=== PATIENT | female | born 1940 ===

== ENCOUNTER 2018-01-23 11:27 | Emergency (ER) | payer MEDICARE ==
[2018-01-23 11:27] VITALS: BMI 24.5
[2018-01-23] MEDS ORDERED: Lidocaine 5% Patch TD STA (13:37)
[2018-01-23] MEDS ORDERED: Lidocaine 5% Patch TD ONE (15:38)
--- NOTE | 2018-01-23 16:18 | ED PDOC ---
HPI: Back Time Seen by Provider: 01/23/18 13:19 Chief Complaint (Nursing): Back Pain Chief Complaint (Provider): Back pain History Per: Patient History/Exam Limitations: no limitations Onset/Duration Of Symptoms: Days (2-3 days) Current Symptoms Are (Timing): Still Present Quality Of Discomfort: "Pain" Additional Complaint(s): 77 year old female presents to the ED complaining of atraumatic right lower back pain onset 3-4 days ago. Reports the pain radiates to her lower leg. States 2 months ago, she visited her pain management doctor whose name she cannot recall, told her she has a disc problem and prescribed her with Percocet. Patient has an appointment with her pain management on February 14 and has not felt any relief with the medication. Denies numbness, tingling, fever, abdominal pain, nausea, vomiting, hematuria, dysuria, or trauma. PMD: No Family Provider Past Medical History Reviewed: Historical Data, Nursing Documentation, Vital Signs Vital Signs: Last Vital Signs Temp 98 F 01/23/18 11:36 Pulse 71 01/23/18 11:36 Resp BP 167/65 H 01/23/18 11:36 Pulse Ox 96 01/23/18 11:36 - Medical History PMH: Arthritis, Asthma, Diabetes, Gastritis, HTN, Hypercholesterolemia Denies: Depression, HIV, Chronic Kidney Disease - Surgical History Surgical History: Cholecystectomy, Endoscopy Denies: Pacemaker - Family History Family History: States: Unknown Family Hx - Immunization History Hx Tetanus Toxoid Vaccination: No (STATES >10 YRS OLD) Hx Influenza Vaccination: Yes - Home Medications Home Medications: Ambulatory Orders Medication Instructions Recorded Zolpidem [Ambien] 10 mg PO HS 10/31/16 Clopidogrel [Plavix] 75 mg PO DAILY 11/01/16 Glipizide [Glipizide Xl] 10 mg PO BID 11/01/16 Insulin Glargine, Recombina 40 units HS 11/01/16 [Lantus] Metformin HCl [Glucophage] 1,000 mg BID 11/01/16 Metoprolol Succinate [Metoprolol 100 mg PO DAILY 11/01/16 Succinate Xl] Oxybutynin [Ditropan Tab] 5 mg HS 11/01/16 Rosuvastatin Calcium [Crestor] 10 mg HS 11/01/16 SITagliptin [Januvia] 100 mg DAILY 11/01/16 hydroCHLOROthiazide [Hydrodiuril] 25 mg DAILY 11/01/16 Lidocaine 5% [Lidoderm] 1 ea TD DAILY PRN #10 patch 01/23/18 Metaxalone [Skelaxin] 800 mg PO Q8 PRN #10 tablet 01/23/18 Nitrofurantoin Macrocrystals 100 mg PO BID #14 cap 01/23/18 [Macrobid] - Allergies Allergies/Adverse Reactions: Allergies Allergy/AdvReac Type Severity Reaction Status Date / Time aspirin AdvReac abdominal Verified 10/31/16 16:41 discomfort Review of Systems ROS Statement: Except As Marked, All Systems Reviewed And Found Negative Constitutional: Negative for: Fever, Other (trauma) Gastrointestinal: Negative for: Nausea, Vomiting, Abdominal Pain Genitourinary Female: Negative for: Dysuria, Incontinence, Hematuria Musculoskeletal: Positive for: Back Pain (right lower), Leg Pain. Negative for : Other (tingling) Neurological: Negative for: Numbness Physical Exam - Reviewed Nursing Documentation Reviewed: Yes Vital Signs Reviewed: Yes - Physical Exam Appears: Positive for: In Acute Distress (minimal) Head Exam: Positive for: ATRAUMATIC, NORMAL INSPECTION, NORMOCEPHALIC Skin: Positive for: Normal Color, Warm, Dry Cardiovascular/Chest: Positive for: Regular Rate, Rhythm. Negative for: Murmur Respiratory: Positive for: Normal Breath Sounds. Negative for: Decreased Breath Sounds, Accessory Muscle Use, Respiratory Distress Gastrointestinal/Abdominal: Positive for: Soft. Negative for: Tenderness Back: Positive for: Normal Inspection, Other (straight leg negative in right leg about 30 degrees, pinpoint right paralumbar and right buttock tenderness). Negative for: L CVA Tenderness, R CVA Tenderness Neurologic/Psych: Positive for: Alert, Oriented (x3). Negative for: Motor/ Sensory Deficits - ECG O2 Sat by Pulse Oximetry: 96 (RA) Pulse Ox Interpretation: Normal Medical Decision Making Medical Decision Making: Time: 1337 Initial Plan: --ED Urine Dipstick --Lidocacine 5% 1 ea --Ultram 50mg --Urine C&S --Reevaluation Clinical Impression: UTI Upon provider evaluation patient is medically stable, and requires no further treatment in the ED at this time. Patient will be discharged with Lidoderm for pain, Skelaxin 800mg for muscle spasm and Macrobid 100mg. Counseling was provided and all questions were answered regarding diagnosis. There is agreement to discharge plan. Return if symptoms persist or worsen. Scribe Attestation: Documented by Skip Sparrow, acting as a scribe for Abel Rose PA-C Provider Scribe Attestation: All medical record entries made by the Scribe were at my direction and personally dictated by me. I have reviewed the chart and agree that the record accurately reflects my personal performance of the history, physical exam, medical decision making, and the department course for this patient. I have also personally directed, reviewed, and agree with the discharge instructions and disposition. Disposition - Clinical Impression Clinical Impression: Low back pain, UTI (urinary tract infection) - Patient ED Disposition Is Patient to be Admitted: No - Disposition Referrals: [facility] [Outside] Disposition: Routine/Home Disposition Time: 16:30 Condition: STABLE Additional Instructions: Follow up with your pain management doctor on 02/14/2018 as previously scheduled Return to ED immediately if symptoms worsen Prescriptions: Lidocaine 5% [Lidoderm] 1 ea TD DAILY PRN #10 patch PRN Reason: pain Metaxalone [Skelaxin] 800 mg PO Q8 PRN #10 tablet PRN Reason: Muscle Spasm Nitrofurantoin Macrocrystals [Macrobid] 100 mg PO BID #14 cap Instructions: Low Back Pain (DC), Urinary Tract Infection, Adult (DC) Forms: [email or web address] (Bulgarian) Print Language: ARABIC
[2018-01-23 16:35] VITALS: BP 148/78; PULSE 70; RESP 18; TEMP 98.2
[2018-01-24 00:11] VITALS: O2SAT 96
== END 2018-01-23 16:35 | disposition home or self-care (01) ==
LOC: H.ER 11:27
DX: N39.0 Urinary tract infection, site not specified (principal); E11.9 Type 2 diabetes mellitus without complications; E78.00 Pure hypercholesterolemia, unspecified; I10 Essential (primary) hypertension; J45.909 Unspecified asthma, uncomplicated; Z79.4 Long term (current) use of insulin; M54.5 Low back pain

== ENCOUNTER 2018-12-16 07:27 | Observation (INO) | payer MEDICARE ==
[2018-12-16 07:33] VITALS: BMI 25.4
[2018-12-16] MEDS ORDERED: Sodium Chloride 0.9% 1,000 ML IV STA (07:53)
--- NOTE | 2018-12-16 08:01 | ED PDOC ---
HPI: Abdomen Time Seen by Provider: 12/16/18 07:31 Chief Complaint (Nursing): GI Problem Chief Complaint (Provider): GI Problem History Per: Patient History/Exam Limitations: no limitations Onset/Duration Of Symptoms: Days (x1) Location Of Pain/Discomfort: RUQ, Epigastric Associated Symptoms: Nausea, Vomiting. denies: Diarrhea Additional Complaint(s): Patient is a 78 year old female with a past medical history of diabetes, HTN and pancreatitis, who presents to the emergency department complaining of abdominal pain associated with nausea, vomiting since yesterday. She denies having any diarrhea, fever, or any blood in vomit or stool. PMD: Gretel Carbone Past Medical History Reviewed: Historical Data, Nursing Documentation, Vital Signs Vital Signs: Last Vital Signs Temp 98.5 F 12/16/18 07:34 Pulse 107 H 12/16/18 07:34 Resp 18 12/16/18 07:34 BP 168/76 H 12/16/18 07:34 Pulse Ox 99 12/16/18 07:34 - Medical History PMH: Arthritis, Asthma, Diabetes, Gastritis, HTN, Hypercholesterolemia, Pancreatitis Denies: Depression, HIV, Chronic Kidney Disease - Surgical History Surgical History: Cholecystectomy, Endoscopy Denies: Pacemaker - Family History Family History: States: Unknown Family Hx - Immunization History Hx Tetanus Toxoid Vaccination: No (STATES >10 YRS OLD) Hx Influenza Vaccination: Yes - Home Medications Home Medications: Ambulatory Orders Medication Instructions Recorded Glipizide [Glipizide Xl] 10 mg PO BID 11/01/16 Metformin HCl [Glucophage] 1,000 mg BID 11/01/16 Metoprolol Succinate [Metoprolol 100 mg PO DAILY 11/01/16 Succinate Xl] SITagliptin [Januvia] 100 mg DAILY 11/01/16 Levocetirizine Dihydrochloride 5 mg PO DAILY 12/16/18 [Xyzal] Ranitidine HCl [Zantac 300] 300 mg PO DAILY 12/16/18 - Allergies Allergies/Adverse Reactions: Allergies Allergy/AdvReac Type Severity Reaction Status Date / Time aspirin AdvReac abdominal Verified 10/31/16 16:41 discomfort Review of Systems Constitutional: Negative for: Fever Gastrointestinal: Positive for: Nausea, Vomiting, Abdominal Pain. Negative for: Diarrhea, Melena, Hematochezia, Hematemesis Physical Exam - Reviewed Nursing Documentation Reviewed: Yes Vital Signs Reviewed: Yes - Physical Exam Appears: Positive for: Non-toxic, No Acute Distress Head Exam: Positive for: ATRAUMATIC, NORMOCEPHALIC Skin: Positive for: Normal Color, Warm, Dry ENT: Positive for: Normal ENT Inspection Cardiovascular/Chest: Positive for: Regular Rate, Rhythm. Negative for: Murmur Respiratory: Positive for: Normal Breath Sounds. Negative for: Respiratory Distress Gastrointestinal/Abdominal: Positive for: Tenderness (mild epigastric tenderness and RUQ tenderness). Negative for: Guarding, Rebound Neurological/Psych: Positive for: Alert, Oriented. Negative for: Motor/Sensory Deficits - Laboratory Results Result Diagrams: 12/16/18 08:23 12/16/18 08:23 - ECG O2 Sat by Pulse Oximetry: 99 (RA) Pulse Ox Interpretation: Normal Medical Decision Making Medical Decision Making: Time: 0753 Impression: Plan: --CT Abd and Pelvis with IV contrast --CMP --Lipase --ED urine dipstick --CBC with differential --Pepcid 20 mg IVP --Sodium chloride 1,000 ml --Zofran 4 mg IVP Scribe Attestation: Documented by Sd Gong, acting as a scribe Lincoln Mancia MD. Provider Scribe Attestation: All medical record entries made by the Scribe were at my direction and personally dictated by me. I have reviewed the chart and agree that the record accurately reflects my personal performance of the history, physical exam, medical decision making, and the department course for this patient. I have also personally directed, reviewed, and agree with the discharge instructions and disposition. Disposition - Clinical Impression Clinical Impression: Pancreatitis, Diabetes mellitus - Patient ED Disposition Is Patient to be Admitted: Yes - Disposition Disposition Time: 10:34 Condition: FAIR Forms: [employer] (Kiswahili) - Pt Status Changed To: Hospital Disposition Of: Observation - POA Present On Arrival: None
[2018-12-16 08:28] LABS: BASO # 0.1 K/uL (0.0-0.2); BASO % 0.8 % (0.0-2.0); EOS # 0.3 K/uL (0.0-0.7); EOS % 2.4 % (0.0-4.0); HEMOGLOBIN 12.3 g/dL (12.0-16.0); LYMPH # 1.3 K/uL (1.0-4.3); LYMPH % 10.2 % (20.0-40.0); MEAN CELL VOLUME 88.1 fl (81.0-99.0); MEAN CORPUSCULAR HGB CONC 32.9 g/dL (33.0-37.0); MEAN PLATELET VOLUME 11.2 fl (7.2-11.7); MONO # 0.8 K/uL (0.0-0.8); MONO % 6.2 % (0.0-10.0); NEUT # 10.2 K/uL (1.8-7.0); NEUT % 80.4 % (50.0-75.0); RBC 4.26 Mil/uL (3.80-5.20); RED CELL DISTRIBUTION WIDTH 15.3 % (11.5-14.5); WHITE BLOOD COUNT 12.7 K/uL (4.8-10.8)
[2018-12-16 08:46] LABS: ALB/GLOB RATIO 1.5 (1.0-2.1); ALBUMIN 4.6 g/dL (3.5-5.0); ALT/SGPT 24 U/L (9-52); AST/SGOT 24 U/L (14-36); BLOOD UREA NITROGEN 31 mg/dl (7-17); CALCIUM 10.6 mg/dL (8.4-10.2); GFR NON-AFRICAN AMERICAN > 60; LIPASE 984 U/L (23-300)
[2018-12-16] MEDS ORDERED: Sodium Chloride 0.9% 50 ML IV ONE (10:00)
[2018-12-16] MEDS ORDERED: Iohexol 300 100 ML IJ ONE (10:00)
[2018-12-16] MEDS: Lactated Ringer's 1,000 ML IV SCH ×2 (10:06→18:02)
--- NOTE | 2018-12-16 10:40 | CT ---
Date of service: 2018-12-16 10:10:08 PROCEDURE: CT Abdomen and Pelvis with contrast HISTORY: Abd pain COMPARISON: 10/31/2016 CT scan TECHNIQUE: Contrast dose: 95 mL Radiation dose: Total exam DLP = 570 mGy-cm. This CT exam was performed using one or more of the following dose reduction techniques: Automated exposure control, adjustment of the mA and/or kV according to patient size, and/or use of iterative reconstruction technique. FINDINGS: LOWER THORAX: Mild emphysematous and interstitial changes seen at the lung bases without focal infiltrate. There is a minor area of scarring seen in the lingula on axial image 4. Heart is mildly enlarged. No pericardial effusion is seen. LIVER: Liver is once again diffusely fatty infiltrated without evidence of focal mass or intrahepatic ductal dilatation. GALLBLADDER AND BILE DUCTS: Gallbladder has been previously removed. The common bile duct is normal in size for a post cholecystectomy patient of this age. PANCREAS: Pancreas is predominantly fatty replaced in the head region. No pancreatic enlargement or peripancreatic inflammatory changes are noted. No pancreatic mass is seen. SPLEEN: Unremarkable. ADRENALS: Unremarkable. No mass. KIDNEYS AND URETERS: Kidneys show no evidence of hydronephrosis, calculus, or mass. No perinephric changes are seen. No ureteral dilatation is noted. VASCULATURE: No aneurysm seen. Moderate aortic atherosclerotic changes noted without aneurysmal dilatation. The atherosclerotic changes involve the aortic branches and iliac arteries. BOWEL: There is evidence of small hiatal hernia. Visualized stomach is decompressed limiting evaluation for wall thickening although no focal wall thickening is seen. There is a mildly dilated fluid-filled duodenum noted as well as a large duodenal diverticulum extending medially towards the pancreatic head region. This appears to be just inferior to the ampullary region although some fluid and debris is noted in the duodenal diverticulum. A mild amount of SMA syndrome is not fully excluded but considered less likely. There is additionally numerous areas of fluid-filled small bowel noted with some mild fold thickening appreciated but no significant mesenteric thickening. Findings may suggest enteritis in the correct clinical setting but should be further correlated with patient's laboratory values and symptoms. Terminal ileum is unremarkable. There is moderate residual fecal material throughout the colon without pericolonic inflammatory change or bowel wall thickening. Rectosigmoid region is unremarkable. APPENDIX: No right lower quadrant inflammatory process to suggest appendicitis is seen. Appendix is normal in size. PERITONEUM: No free intraperitoneal air or ascites is seen. No retroperitoneal adenopathy is noted. LYMPH NODES: Unremarkable. No enlarged lymph nodes. BLADDER: Bladder is decompressed limiting evaluation REPRODUCTIVE: No pelvic masses are seen. BONES: No fracture. OTHER FINDINGS: None. IMPRESSION: No evidence of bowel obstruction. Diffusely fluid-filled small bowel loops with some possible mild fold thickening. Mild amount of enteritis is not excluded. Enlarged duodenal diverticulum with debris but no significant inflammatory changes. Status post cholecystectomy. Fatty infiltration of the liver. No evidence of bowel obstruction or colitis.
[2018-12-16 12:18] LABS: SQUAMOUS EPITHIAL 1 /hpf (0-5); URINE BACTERIA RARE (<OCC); URINE BILIRUBIN NEGATIVE (NEGATIVE); URINE BLOOD NEGATIVE (NEGATIVE); URINE CLARITY CLOUDY (Clear); URINE COLOR YELLOW (YELLOW); URINE GLUCOSE (UA) 150 mg/dL (NEGATIVE); URINE LEUKOCYTE ESTERASE SMALL Leu/uL (Negative); URINE PROTEIN 30 mg/dL (NEGATIVE); URINE UROBILINOGEN 0.2-1.0 mg/dL (0.2-1.0)
--- NOTE | 2018-12-16 12:25 | CP.PCM.HP ---
<Nidia Collado - Last Filed: 12/16/18 12:58> History of Present Illness - History of Present Illness History of Present Illness: Voyce: [id number] Pt is a 78 yo F with a pmhx of pancreatitis, DM, HTN presented to the ED due to intractable NBNB vomiting 10x last night and abdominal pain. Pt has been taking januvia for 3-4 years. Denies fever, chills, chest pain, SOB, Diarrhea, constipation or dysuria. PMD: Gretel Carbone Pmhx: Pancreatitis, DM, HTN, Arthritis, Asthma, Gastritis, HLD Allergies: ASA-bodyaches Meds: Januvia 100mg QD, Glipizide 10mg BID, Xyzal 5mg QD, Metformin 1000mg BID, Zantac, Metoprolol 100mg QD Surg: Cholecystectomy 1998, Uterine Laser surg, Hysterectomy Hosp: hospitalized 10/2016 at [facility] for pancreatitis Social Hx: Denies tobacco, EtOH, or drug use FHx: Bother colon ca @60, sister colon ca @80 Code status: Full code ED course: CBC wbc-12.7, CMP- K 5.4, Lipase 984, urine dip, pepcid 20mg IVP, NaCl 1 L, Zofran 4mg IVP, Ab/pelv CT with IV contrast- no obstruction, enteritis not excluded, duodenal diverticulum with debri no sig inflamm changes, pancreas predom fatty replaced in head region, no enlargement, mass or inflammatory changes seen. Present on Admission - Present on Admission Any Indicators Present on Admission: No History of DVT/PE: No History of Uncontrolled Diabetes: No Urinary Catheter: No Decubitus Ulcer Present: No Review of Systems - Gastrointestinal Gastrointestinal: Abdominal Pain, Nausea, Vomiting Past Patient History - Past Medical History & Family History Past Medical History?: Yes - Past Social History Smoking Status: Never Smoked Alcohol: None Drugs: Denies - CARDIAC Hx Hypercholesterolemia: Yes Hx Hypertension: Yes Hx Pacemaker: No - PULMONARY Hx Asthma: Yes - NEUROLOGICAL Hx Neurological Disorder: No Hx Paralysis: No - HEENT Hx HEENT Problems: Yes Hx Cataracts: Yes - RENAL Hx Chronic Kidney Disease: No - ENDOCRINE/METABOLIC Hx Endocrine Disorders: Yes Hx Diabetes Mellitus Type 1: Yes Hx Diabetes Mellitus Type 2: Yes Other/Comment: DIABETIC NEUROPATHY - HEMATOLOGICAL/ONCOLOGICAL Hx Human Immunodeficiency Virus (HIV): No - INTEGUMENTARY Hx Dermatological Problems: No - MUSCULOSKELETAL/RHEUMATOLOGICAL Hx Arthritis: Yes - GASTROINTESTINAL Hx Gastritis: Yes Hx Pancreatitis: Yes - GENITOURINARY/GYNECOLOGICAL Hx Genitourinary Disorders: No - PSYCHIATRIC Hx Depression: No - SURGICAL HISTORY Hx Cholecystectomy: Yes - ANESTHESIA Hx Anesthesia: Yes Hx Anesthesia Reactions: No Hx Malignant Hyperthermia: No Meds Allergies/Adverse Reactions: Allergies Allergy/AdvReac Type Severity Reaction Status Date / Time aspirin AdvReac abdominal Verified 10/31/16 16:41 discomfort Physical Exam - Constitutional Appears: Non-toxic, No Acute Distress - Head Exam Head Exam: ATRAUMATIC, NORMAL INSPECTION, NORMOCEPHALIC - Eye Exam Eye Exam: EOMI - ENT Exam ENT Exam: Mucous Membranes Moist - Respiratory Exam Respiratory Exam: Clear to Auscultation Bilateral. absent: Rales, Rhonchi, Wheezes - Cardiovascular Exam Cardiovascular Exam: REGULAR RHYTHM, +S1, +S2 - GI/Abdominal Exam GI & Abdominal Exam: Normal Bowel Sounds, Soft, Tenderness (epigastric/RUQ). absent: Guarding, Rebound, Rigid - Extremities Exam Extremities exam: Positive for: normal inspection. Negative for: pedal edema - Neurological Exam Neurological exam: Alert, Oriented x3 Results - Vital Signs Recent Vital Signs: Last Vital Signs Temp 98.1 F 12/16/18 11:23 Pulse 103 H 12/16/18 11:23 Resp 18 12/16/18 11:23 BP 119/76 12/16/18 11:23 Pulse Ox 96 12/16/18 11:23 - Labs Result Diagrams: 12/16/18 08:23 12/16/18 08:23 Labs: Laboratory Results - last 24 hr 12/16/18 12/16/18 12/16/18 08:23 08:23 11:55 WBC 12.7 H D RBC 4.26 Hgb 12.3 Hct 37.5 MCV 88.1 MCH 29.0 MCHC 32.9 L RDW 15.3 H Plt Count 202 MPV 11.2 Neut % (Auto) 80.4 H Lymph % (Auto) 10.2 L [place] % (Auto) 6.2 Eos % (Auto) 2.4 Baso % (Auto) 0.8 Neut # (Auto) 10.2 H Lymph # (Auto) 1.3 [place] # (Auto) 0.8 Eos # (Auto) 0.3 Baso # (Auto) 0.1 Sodium 138 Potassium 5.4 H Chloride 100 Carbon Dioxide 24 Anion Gap 19 BUN 31 H Creatinine 0.7 Est GFR ( Amer) > 60 Est GFR (Non-Af Amer) > 60 Random Glucose 306 H Calcium 10.6 H Total Bilirubin 0.5 AST 24 ALT 24 Alkaline Phosphatase 73 Total Protein 7.7 Albumin 4.6 Globulin 3.1 Albumin/Globulin Ratio 1.5 Lipase 984 H Urine Color Yellow Urine Clarity Cloudy Urine pH 5.0 Ur Specific [place] 1.020 Urine Protein 30 Urine Glucose (UA) 150 Urine Ketones Negative Urine Blood Negative Urine Nitrate Negative Urine Bilirubin Negative Urine Urobilinogen 0.2-1.0 Ur Leukocyte Esterase Small Urine RBC (Auto) 3 Urine Microscopic WBC 25 H Ur Squamous Epith Cells 1 Urine Bacteria Rare Assessment & Plan - Assessment and Plan (Free Text) Assessment: Pt is a 78 yo F with a pmhx of pancreatitis, DM, HTN presented to the ED due to intractable NBNB vomiting and abdominal pain admitted due to Pancreatitis and DM Pancreatitis acute Lipase elevated 984 LR's @ 150ml/hr, morphine, zofran CBC wbc-12.7, CMP- K 5.4 Ab/pelv CT with IV contrast- no obstruction, enteritis not excluded, duodenal diverticulum with debri no sig inflamm changes, pancreas predom fatty replaced in head region, no enlargement, mass or inflammatory changes seen. F/u BMP, CBC, hgA1c, Lipid panel in AM DM chronic, uncontrolled POC 306 Insulin SS Accuchecks, hypoglycemic protocol F/u hgA1c and lipid panel in AM HTN chronic c/w metoprolol 100mg QD Gastritis chronic pepcid 20mg IVP Diet NPO diet DVT PPX Lovenox 40mg SC daily <Steffen Miramontes D - Last Filed: 12/16/18 13:46> Results - Vital Signs Recent Vital Signs: Last Vital Signs Temp 98.1 F 12/16/18 11:23 Pulse 103 H 12/16/18 11:23 Resp 18 12/16/18 11:23 BP 119/76 12/16/18 11:23 Pulse Ox 96 12/16/18 11:23 - Labs Result Diagrams: 12/16/18 08:23 12/16/18 08:23 Labs: Laboratory Results - last 24 hr 12/16/18 12/16/18 12/16/18 08:23 08:23 11:55 WBC 12.7 H D RBC 4.26 Hgb 12.3 Hct 37.5 MCV 88.1 MCH 29.0 MCHC 32.9 L RDW 15.3 H Plt Count 202 MPV 11.2 Neut % (Auto) 80.4 H Lymph % (Auto) 10.2 L [place] % (Auto) 6.2 Eos % (Auto) 2.4 Baso % (Auto) 0.8 Neut # (Auto) 10.2 H Lymph # (Auto) 1.3 [place] # (Auto) 0.8 Eos # (Auto) 0.3 Baso # (Auto) 0.1 Sodium 138 Potassium 5.4 H Chloride 100 Carbon Dioxide 24 Anion Gap 19 BUN 31 H Creatinine 0.7 Est GFR ( Amer) > 60 Est GFR (Non-Af Amer) > 60 POC Glucose (mg/dL) Random Glucose 306 H Calcium 10.6 H Total Bilirubin 0.5 AST 24 ALT 24 Alkaline Phosphatase 73 Total Protein 7.7 Albumin 4.6 Globulin 3.1 Albumin/Globulin Ratio 1.5 Lipase 984 H Urine Color Yellow Urine Clarity Cloudy Urine pH 5.0 Ur Specific [place] 1.020 Urine Protein 30 Urine Glucose (UA) 150 Urine Ketones Negative Urine Blood Negative Urine Nitrate Negative Urine Bilirubin Negative Urine Urobilinogen 0.2-1.0 Ur Leukocyte Esterase Small Urine RBC (Auto) 3 Urine Microscopic WBC 25 H Ur Squamous Epith Cells 1 Urine Bacteria Rare 12/16/18 12:57 WBC RBC Hgb Hct MCV MCH MCHC RDW Plt Count MPV Neut % (Auto) Lymph % (Auto) [place] % (Auto) Eos % (Auto) Baso % (Auto) Neut # (Auto) Lymph # (Auto) [place] # (Auto) Eos # (Auto) Baso # (Auto) Sodium Potassium Chloride Carbon Dioxide Anion Gap BUN Creatinine Est GFR ( Amer) Est GFR (Non-Af Amer) POC Glucose (mg/dL) 239 H Random Glucose Calcium Total Bilirubin AST ALT Alkaline Phosphatase Total Protein Albumin Globulin Albumin/Globulin Ratio Lipase Urine Color Urine Clarity Urine pH Ur Specific [place] Urine Protein Urine Glucose (UA) Urine Ketones Urine Blood Urine Nitrate Urine Bilirubin Urine Urobilinogen Ur Leukocyte Esterase Urine RBC (Auto) Urine Microscopic WBC Ur Squamous Epith Cells Urine Bacteria Attending/Attestation - Attestation I have personally seen and examined this patient.: Yes I have fully participated in the care of the patient.: Yes I have reviewed all pertinent clinical information: Yes Notes (Text): 12/16/18 13:44 Patient seen and examined with resident. Case discussed and agreed with assessment and plan of management
[2018-12-16] MEDS ORDERED: Glucagon Recombinant 1 mg Inj IM PRN (12:56)
[2018-12-16] MEDS ORDERED: Dextrose 50% SYRINGE Inj (50 ml) IV PRN (12:56)
[2018-12-16] MEDS: Metoprolol Succinate 100 mg XL Tab PO SCH (14:46)
[2018-12-16] MEDS ORDERED: Pneumococcal 23-Valent Vaccine IM ONE (16:00)
[2018-12-16] MEDS: Insulin Lispro (humaLOG) 100 Units/ml Inj SC SCH ×2 (18:02→22:03)
[2018-12-16] MEDS: Sodium Chloride 0.9% 1,000 ML IV SCH (20:18)
[2018-12-17] MEDS: Sodium Chloride 0.9% 1,000 ML IV SCH ×3 (02:55→09:40)
[2018-12-17 06:00] VITALS: RESP 19
[2018-12-17] MEDS: Insulin Lispro (humaLOG) 100 Units/ml Inj SC SCH ×2 (06:49→12:56)
[2018-12-17 07:14] LABS: BASO % 0.3 % (0.0-2.0); EOS # 0.2 K/uL (0.0-0.7); EOS % 2.2 % (0.0-4.0); HEMOGLOBIN 10.6 g/dL (12.0-16.0); LYMPH # 1.9 K/uL (1.0-4.3); LYMPH % 24.6 % (20.0-40.0); MEAN CORPUSCULAR HEMOGLOBIN 29.3 pg (27.0-31.0); MEAN CORPUSCULAR HGB CONC 33.3 g/dL (33.0-37.0); MEAN PLATELET VOLUME 10.7 fl (7.2-11.7); MONO # 0.6 K/uL (0.0-0.8); MONO % 7.6 % (0.0-10.0); NEUT # 5.1 K/uL (1.8-7.0); NEUT % 65.3 % (50.0-75.0); RBC 3.6 Mil/uL (3.80-5.20); RED CELL DISTRIBUTION WIDTH 15.1 % (11.5-14.5); WHITE BLOOD COUNT 7.7 K/uL (4.8-10.8)
[2018-12-17 07:23] LABS: BLOOD UREA NITROGEN 14 mg/dl (7-17); CALCIUM 8.9 mg/dL (8.4-10.2); GFR NON-AFRICAN AMERICAN > 60; HDL CHOLESTEROL 26 MG/DL (30-70)
[2018-12-17 07:30] LABS: LDL CHOLESTEROL 39 mg/dL (0-129)
[2018-12-17 07:34] VITALS: PULSE 81; TEMP 98.3; O2SAT 96
--- NOTE | 2018-12-17 08:18 | CP.PCM.PN ---
Objective - Vital Signs/Intake and Output Vital Signs (last 24 hours): Temp Pulse Resp BP Pulse Ox 98.3 F 81 19 165/75 H 96 12/17/18 07:34 12/17/18 07:34 12/17/18 07:34 12/17/18 07:34 12/17/18 07:34 - Medications Medications: Current Medications Dextrose (Dextrose 50% Inj) 0 ml IV STAT PRN; Protocol PRN Reason: Hypoglycemia Protocol Dextrose (Glutose 15) 0 gm PO ONCE PRN; Protocol PRN Reason: Hypoglycemia Protocol Enoxaparin Sodium (Lovenox) 40 mg SC DAILY [facility]; Protocol Glucagon (Glucagen Diagnostic Kit) 0 mg IM STAT PRN; Protocol PRN Reason: Hypoglycemia Protocol Sodium Chloride (Sodium Chloride 0.9%) 1,000 mls @ 150 mls/hr IV .[id number] [facility] Stop: 12/17/18 20:01 Last Admin: 12/17/18 03:38 Dose: 150 mls/hr Insulin Human Lispro (Humalog) 0 units SC ACHS [facility]; Protocol Last Admin: 12/17/18 06:49 Dose: 3 unit Metoprolol Succinate (Toprol Xl) 100 mg PO DAILY [facility] Last Admin: 12/16/18 14:46 Dose: 100 mg Morphine Sulfate (Morphine) 2 mg IVP Q4 PRN PRN Reason: Pain, moderate (4-7) Last Admin: 12/16/18 23:36 Dose: 2 mg Ondansetron HCl (Zofran Inj) 4 mg IVP Q6 PRN PRN Reason: Nausea/Vomiting - Labs Labs: 12/17/18 06:30 12/17/18 06:30
[2018-12-17] MEDS: Metoprolol Succinate 100 mg XL Tab PO SCH (08:38)
[2018-12-17 08:39] VITALS: BP 165/77
[2018-12-17] MEDS ORDERED: Enoxaparin 40 mg Syringe SC SCH (09:00)
--- NOTE | 2018-12-17 13:55 | CP.PCM.DIS ---
<Nidia Collado - Last Filed: 12/17/18 14:19> Provider - Provider Date of Admission: 12/16/18 10:33 Attending physician: Steffen Miramontes MD Primary care physician: Gretel Carbone Time Spent in preparation of Discharge (in minutes): 15 Diagnosis - Discharge Diagnosis (1) Pancreatitis Status: Acute Comment: resolved, tolerating oral intake. Due to hx of pancreatitis and acute episode discontinue Januvia. D/C home follow up with Dr. Gretel Carbone in 1 week (2) Diabetes mellitus Status: Acute Comment: Due to hx of pancreatitis and acute episode discontinue Januvia. D/C home follow up with Dr. Gretel Carbone in 1 week (3) Abdominal pain Status: Acute Comment: Resolved Hospital Course - Lab Results Lab Results: Most Recent Lab Values WBC 7.7 K/uL (4.8-10.8) 12/17/18 06:30 RBC 3.60 Mil/uL (3.80-5.20) L 12/17/18 06:30 Hgb 10.6 g/dL (12.0-16.0) L 12/17/18 06:30 Hct 31.7 % (34.0-47.0) L 12/17/18 06:30 MCV 88.0 fl (81.0-99.0) 12/17/18 06:30 MCH 29.3 pg (27.0-31.0) 12/17/18 06:30 MCHC 33.3 g/dL (33.0-37.0) 12/17/18 06:30 RDW 15.1 % (11.5-14.5) H 12/17/18 06:30 Plt Count 159 K/uL (130-400) 12/17/18 06:30 MPV 10.7 fl (7.2-11.7) 12/17/18 06:30 Neut % (Auto) 65.3 % (50.0-75.0) 12/17/18 06:30 Lymph % (Auto) 24.6 % (20.0-40.0) 12/17/18 06:30 P[place] % (Auto) 7.6 % (0.0-10.0) 12/17/18 06:30 Eos % (Auto) 2.2 % (0.0-4.0) 12/17/18 06:30 Baso % (Auto) 0.3 % (0.0-2.0) 12/17/18 06:30 Neut # (Auto) 5.1 K/uL (1.8-7.0) 12/17/18 06:30 Lymph # (Auto) 1.9 K/uL (1.0-4.3) 12/17/18 06:30 Pendleton # (Auto) 0.6 K/uL (0.0-0.8) 12/17/18 06:30 Eos # (Auto) 0.2 K/uL (0.0-0.7) 12/17/18 06:30 Baso # (Auto) 0.0 K/uL (0.0-0.2) 12/17/18 06:30 Sodium 136 mmol/l (132-148) 12/17/18 06:30 Potassium 4.5 MMOL/L (3.6-5.0) 12/17/18 06:30 Chloride 100 mmol/L (98-107) 12/17/18 06:30 Carbon Dioxide 27 mmol/L (22-30) 12/17/18 06:30 Anion Gap 14 (10-20) 12/17/18 06:30 BUN 14 mg/dl (7-17) 12/17/18 06:30 Creatinine 0.6 mg/dl (0.7-1.2) L 12/17/18 06:30 Est GFR ( Amer) > 60 12/17/18 06:30 Est GFR (Non-Af Amer) > 60 12/17/18 06:30 POC Glucose (mg/dL) 244 mg/dL (65-110) H 12/17/18 12:07 Random Glucose 260 mg/dL (65-105) H 12/17/18 06:30 Calcium 8.9 mg/dL (8.4-10.2) 12/17/18 06:30 Total Bilirubin 0.5 mg/dl (0.2-1.3) 12/16/18 08:23 AST 24 U/L (14-36) 12/16/18 08:23 ALT 24 U/L (9-52) 12/16/18 08:23 Alkaline Phosphatase 73 U/L (38-126) 12/16/18 08:23 Total Protein 7.7 G/DL (6.3-8.2) 12/16/18 08:23 Albumin 4.6 g/dL (3.5-5.0) 12/16/18 08:23 Globulin 3.1 gm/dL (2.2-3.9) 12/16/18 08:23 Albumin/Globulin Ratio 1.5 (1.0-2.1) 12/16/18 08:23 Triglycerides 257 mg/DL (0-149) H 12/17/18 06:30 Cholesterol 120 mg/dL (0-199) 12/17/18 06:30 LDL Cholesterol Direct 39 mg/dL (0-129) 12/17/18 06:30 HDL Cholesterol 26 MG/DL (30-70) L 12/17/18 06:30 Lipase 984 U/L (23-300) H 12/16/18 08:23 Urine Color Yellow (YELLOW) 12/16/18 11:55 Urine Clarity Cloudy (Clear) 12/16/18 11:55 Urine pH 5.0 (5.0-8.0) 12/16/18 11:55 Ur Specific Bethany 1.020 (1.003-1.030) 12/16/18 11:55 Urine Protein 30 mg/dL (NEGATIVE) 12/16/18 11:55 Urine Glucose (UA) 150 mg/dL (NEGATIVE) 12/16/18 11:55 Urine Ketones Negative mg/dL (NEGATIVE) 12/16/18 11:55 Urine Blood Negative (NEGATIVE) 12/16/18 11:55 Urine Nitrate Negative (NEGATIVE) 12/16/18 11:55 Urine Bilirubin Negative (NEGATIVE) 12/16/18 11:55 Urine Urobilinogen 0.2-1.0 mg/dL (0.2-1.0) 12/16/18 11:55 Ur Leukocyte Esterase Small Johnathan/uL (Negative) 12/16/18 11:55 Urine RBC (Auto) 3 /hpf (0-3) 12/16/18 11:55 Urine Microscopic WBC 25 /hpf (0-5) H 12/16/18 11:55 Ur Squamous Epith Cells 1 /hpf (0-5) 12/16/18 11:55 Urine Bacteria Rare (<OCC) 12/16/18 11:55 - Hospital Course Hospital Course: Pt is a 78 yo F with a pmhx of pancreatitis, DM, HTN presented to the ED on 12/16/18 due to intractable NBNB vomiting 10x and abdominal pain. Pt had been taking januvia for 3-4 years. CBC wbc-12.7, CMP- K 5.4, Lipase 984, urine dip, pepcid 20mg IVP, NaCl 1 L, Zofran 4mg IVP, Ab/pelv CT with IV contrast- no obstruction, enteritis not excluded, duodenal diverticulum with debri no sig inflamm changes, pancreas predom fatty replaced in head region, no enlargement, mass or inflammatory changes seen. Today patient is tolerating oral intake. VS stable. Denies abdominal pain, fever, chills, chest pain, N/V SOB, Diarrhea, constipation or dysuria. Discontinued Januvia on discharge. F/u with PMD in 1 week. Discharge Exam - Head Exam Head Exam: ATRAUMATIC, NORMAL INSPECTION, NORMOCEPHALIC - Eye Exam Eye Exam: EOMI - ENT Exam ENT Exam: Mucous Membranes Moist - Respiratory Exam Respiratory Exam: Clear to PA & Lateral, NORMAL BREATHING PATTERN - Cardiovascular Exam Cardiovascular Exam: RRR, +S1, +S2 - GI/Abdominal Exam GI & Abdominal Exam: Normal Bowel Sounds, Soft. absent: Tenderness - Extremities Exam Extremities exam: normal inspection - Neurological Exam Neurological exam: Alert, Oriented x3 Discharge Plan - Follow Up Plan Condition: FAIR Disposition: HOME/ ROUTINE Instructions: Pancreatitis Additional Instructions: hacer gus con jimenez doctor primario dentro de 1 semana Referrals: Gretel Carbone MD [Medical Doctor] - <Steffen Miramontes - Last Filed: 12/17/18 15:00> Provider - Provider Date of Admission: 12/16/18 10:33 Attending physician: Steffen Miramontes MD Hospital Course - Lab Results Lab Results: Most Recent Lab Values WBC 7.7 K/uL (4.8-10.8) 12/17/18 06:30 RBC 3.60 Mil/uL (3.80-5.20) L 12/17/18 06:30 Hgb 10.6 g/dL (12.0-16.0) L 12/17/18 06:30 Hct 31.7 % (34.0-47.0) L 12/17/18 06:30 MCV 88.0 fl (81.0-99.0) 12/17/18 06:30 MCH 29.3 pg (27.0-31.0) 12/17/18 06:30 MCHC 33.3 g/dL (33.0-37.0) 12/17/18 06:30 RDW 15.1 % (11.5-14.5) H 12/17/18 06:30 Plt Count 159 K/uL (130-400) 12/17/18 06:30 MPV 10.7 fl (7.2-11.7) 12/17/18 06:30 Neut % (Auto) 65.3 % (50.0-75.0) 12/17/18 06:30 Lymph % (Auto) 24.6 % (20.0-40.0) 12/17/18 06:30 [place] % (Auto) 7.6 % (0.0-10.0) 12/17/18 06:30 Eos % (Auto) 2.2 % (0.0-4.0) 12/17/18 06:30 Baso % (Auto) 0.3 % (0.0-2.0) 12/17/18 06:30 Neut # (Auto) 5.1 K/uL (1.8-7.0) 12/17/18 06:30 Lymph # (Auto) 1.9 K/uL (1.0-4.3) 12/17/18 06:30 [place] # (Auto) 0.6 K/uL (0.0-0.8) 12/17/18 06:30 Eos # (Auto) 0.2 K/uL (0.0-0.7) 12/17/18 06:30 Baso # (Auto) 0.0 K/uL (0.0-0.2) 12/17/18 06:30 Sodium 136 mmol/l (132-148) 12/17/18 06:30 Potassium 4.5 MMOL/L (3.6-5.0) 12/17/18 06:30 Chloride 100 mmol/L (98-107) 12/17/18 06:30 Carbon Dioxide 27 mmol/L (22-30) 12/17/18 06:30 Anion Gap 14 (10-20) 12/17/18 06:30 BUN 14 mg/dl (7-17) 12/17/18 06:30 Creatinine 0.6 mg/dl (0.7-1.2) L 12/17/18 06:30 Est GFR ( Amer) > 60 12/17/18 06:30 Est GFR (Non-Af Amer) > 60 12/17/18 06:30 POC Glucose (mg/dL) 244 mg/dL (65-110) H 12/17/18 12:07 Random Glucose 260 mg/dL (65-105) H 12/17/18 06:30 Calcium 8.9 mg/dL (8.4-10.2) 12/17/18 06:30 Total Bilirubin 0.5 mg/dl (0.2-1.3) 12/16/18 08:23 AST 24 U/L (14-36) 12/16/18 08:23 ALT 24 U/L (9-52) 12/16/18 08:23 Alkaline Phosphatase 73 U/L (38-126) 12/16/18 08:23 Total Protein 7.7 G/DL (6.3-8.2) 12/16/18 08:23 Albumin 4.6 g/dL (3.5-5.0) 12/16/18 08:23 Globulin 3.1 gm/dL (2.2-3.9) 12/16/18 08:23 Albumin/Globulin Ratio 1.5 (1.0-2.1) 12/16/18 08:23 Triglycerides 257 mg/DL (0-149) H 12/17/18 06:30 Cholesterol 120 mg/dL (0-199) 12/17/18 06:30 LDL Cholesterol Direct 39 mg/dL (0-129) 12/17/18 06:30 HDL Cholesterol 26 MG/DL (30-70) L 12/17/18 06:30 Lipase 984 U/L (23-300) H 12/16/18 08:23 Urine Color Yellow (YELLOW) 12/16/18 11:55 Urine Clarity Cloudy (Clear) 12/16/18 11:55 Urine pH 5.0 (5.0-8.0) 12/16/18 11:55 Ur Specific Beth[place] 1.020 (1.003-1.030) 12/16/18 11:55 Urine Protein 30 mg/dL (NEGATIVE) 12/16/18 11:55 Urine Glucose (UA) 150 mg/dL (NEGATIVE) 12/16/18 11:55 Urine Ketones Negative mg/dL (NEGATIVE) 12/16/18 11:55 Urine Blood Negative (NEGATIVE) 12/16/18 11:55 Urine Nitrate Negative (NEGATIVE) 12/16/18 11:55 Urine Bilirubin Negative (NEGATIVE) 12/16/18 11:55 Urine Urobilinogen 0.2-1.0 mg/dL (0.2-1.0) 12/16/18 11:55 Ur Leukocyte Esterase Small Johnathan/uL (Negative) 12/16/18 11:55 Urine RBC (Auto) 3 /hpf (0-3) 12/16/18 11:55 Urine Microscopic WBC 25 /hpf (0-5) H 12/16/18 11:55 Ur Squamous Epith Cells 1 /hpf (0-5) 12/16/18 11:55 Urine Bacteria Rare (<OCC) 12/16/18 11:55 Attending/Attestation - Attestation I have personally seen and examined this patient.: Yes I have fully participated in the care of the patient.: Yes I have reviewed all pertinent clinical information, including history, physical exam and plan: Yes Notes (Text): 12/17/18 14:59 Patient seen and examined with resident. Case discussed and agreed with assessment. Patient discharged in stable condition.
== END 2018-12-17 14:32 | disposition home or self-care (01) ==
LOC: H.ER 07:27 → H.ERHOLD 10:33 → H.MEDSURG1 11:50
DX: K85.90 Acute pancreatitis without necrosis or infection, unspecified (principal); Z79.4 Long term (current) use of insulin; Z80.0 Family history of malignant neoplasm of digestive organs; Z90.49 Acquired absence of other specified parts of digestive tract; H26.9 Unspecified cataract; M19.90 Unspecified osteoarthritis, unspecified site; Z79.84 Long term (current) use of oral hypoglycemic drugs; Z79.899 Other long term (current) drug therapy; E10.40 Type 1 diabetes mellitus with diabetic neuropathy, unspecified; E78.00 Pure hypercholesterolemia, unspecified; E78.5 Hyperlipidemia, unspecified; I10 Essential (primary) hypertension; J45.909 Unspecified asthma, uncomplicated; K29.70 Gastritis, unspecified, without bleeding; K57.10 Diverticulosis of small intestine without perforation or abscess without bleeding; Z23 Encounter for immunization
CPT/HCPCS: 36415; 74177; 80048; 80053; 80061; 81003; 82948; 83036; 83690; 85025; 90732; 96374; 99285; G0009; G0378; J1650; J2270; J2405; J7030; J7120; Q9967

== ENCOUNTER 2018-12-27 22:08 | Emergency (ER) | payer MEDICARE ==
[2018-12-27 22:08] VITALS: BMI 25.4
[2018-12-27] MEDS ORDERED: Albuterol-Ipratrop 3 mg / 0.5 (3 ml) UD INH STA (22:24)
[2018-12-27] MEDS ORDERED: Magnesium Sulfate 2 gm/50 ml 2 GM/50 ML BAG IV STA (22:30)
[2018-12-27] MEDS ORDERED: Albuterol-Ipratrop 3 mg / 0.5 (3 ml) UD ONE (22:36)
[2018-12-27] MEDS ORDERED: Magnesium Sulfate 2 gm/50 ml 2 GM/50 ML BAG ONE (22:37)
--- NOTE | 2018-12-27 22:47 | ED PDOC ---
HPI: SOB/CHF/COPD Time Seen by Provider: 12/27/18 22:22 Chief Complaint (Nursing): Shortness Of Breath Chief Complaint (Provider): Shortness Of Breath History Per: Patient History/Exam Limitations: no limitations Onset/Duration Of Symptoms: Days (1) Current Symptoms Are (Timing): Still Present Quality: Tightness Current Respiratory Medications: Albuterol Associated Symptoms: Other (dry cough ) Additional Complaint(s): 78 year old female with pmhx of asthma, HTN, diabetes presents to the ED for an evaluation of shortness of breath onset for one day. Patient report in the morning she developed shortness of breath for which used her albuterol inhaler and nebulizer. Also states of chest tightness and dry cough. Otherwise, patient denies fever, chest pain, abdominal pain, nausea, vomiting or diarrhea. PMD: Dr. Carbone Past Medical History Reviewed: Historical Data, Nursing Documentation, Vital Signs Vital Signs: Last Vital Signs Temp 99.1 F 12/27/18 22:28 Pulse 118 H 12/27/18 22:28 Resp 20 12/27/18 22:28 BP 199/87 H 12/27/18 22:28 Pulse Ox 98 12/27/18 22:28 Primary Care Provider: Doctor,Conversion - Medical History PMH: Arthritis, Asthma, Diabetes, Gastritis, Hepatitis, HTN, Hyperchole sterolemia, Pancreatitis Denies: Depression, HIV, Chronic Kidney Disease - Surgical History Surgical History: Cholecystectomy, Endoscopy Denies: Pacemaker - Family History Family History: States: Unknown Family Hx - Social History Current smoker - smoking cessation education provided: No Alcohol: None Drugs: Denies - Immunization History Hx Tetanus Toxoid Vaccination: No (STATES >10 YRS OLD) Hx Influenza Vaccination: Yes - Home Medications Home Medications: Ambulatory Orders Medication Instructions Recorded Glipizide [Glipizide Xl] 10 mg PO BID 11/01/16 Metformin HCl [Glucophage] 1,000 mg BID 11/01/16 Metoprolol Succinate 100 mg PO DAILY 11/01/16 Levocetirizine Dihydrochloride 5 mg PO DAILY 12/16/18 [Xyzal] Ranitidine HCl [Zantac] 300 mg PO DAILY 12/16/18 Zolpidem [Ambien] 10 mg PO HS PRN 12/16/18 Albuterol 0.5% [Albuterol 0.5% 2.5 mg IH Q6 PRN #1 packet 12/28/18 Inhal Prisca (2.5 mg/0.5 ml) UD] Mask, Face [Nebulizer Aerosol Mask 1 dev XX PRN PRN #1 dev 12/28/18 Pediatric] Methylprednisolone [Medrol Dosepak] 4 mg PO ASDIR #1 pkg 12/28/18 Nebulizer [Compact Compressor 1 dev XX PRN PRN #1 dev 12/28/18 Nebulizer] - Allergies Allergies/Adverse Reactions: Allergies Allergy/AdvReac Type Severity Reaction Status Date / Time aspirin AdvReac abdominal Verified 12/27/18 22:20 discomfort Review of Systems ROS Statement: Except As Marked, All Systems Reviewed And Found Negative Constitutional: Negative for: Fever Cardiovascular: Negative for: Chest Pain Respiratory: Positive for: Cough, Shortness of Breath Gastrointestinal: Negative for: Nausea, Vomiting, Abdominal Pain, Diarrhea Physical Exam - Reviewed Nursing Documentation Reviewed: Yes Vital Signs Reviewed: Yes - Physical Exam Appears: Positive for: Non-toxic, No Acute Distress Head Exam: Positive for: ATRAUMATIC, NORMAL INSPECTION, NORMOCEPHALIC Skin: Positive for: Normal Color, Warm, Dry. Negative for: Rash Eye Exam: Positive for: EOMI, Normal appearance, PERRL ENT: Positive for: Normal ENT Inspection Neck: Positive for: Normal, Painless ROM, Supple. Negative for: Decreased ROM Cardiovascular/Chest: Positive for: Regular Rate, Rhythm. Negative for: Murmur Respiratory: Positive for: Decreased Breath Sounds, Rhonchi (expiratory), Wheezing (bilateral expiratory wheezing), Respiratory Distress (mild ) Gastrointestinal/Abdominal: Positive for: Normal Exam, Soft. Negative for: T enderness Back: Positive for: Normal Inspection. Negative for: L CVA Tenderness, R CVA Tenderness Extremity: Positive for: Normal ROM. Negative for: Tenderness, Pedal Edema, Deformity Neurological/Psych: Positive for: Awake, Alert, Normal Tone, Oriented (x3). Negative for: Motor/Sensory Deficits - Laboratory Results Result Diagrams: 12/27/18 22:50 12/27/18 22:50 - ECG O2 Sat by Pulse Oximetry: 98 (RA) Pulse Ox Interpretation: Normal - Critical Care Total Time (In Min): 30 Medical Decision Making Medical Decision Making: Time: 2222 Impression: 78yo female with asthma exacerbation Plan: EKG B-type natriuretic peptide CMP Troponin ED urine dipstick CBC w/ differential PTT Prothrombin time Chest portable Albuterol 9ml Magnesium 2gm Solumedrol 125mg Normal Saline 1000 mls/hr Heplock insertion Peak flow pre/post Influenza A UA 01:53 Labs reviewed and reveal no clinically significant abnormalities. CXR shows no active disease. Patient reports complete resolution of symptoms and is stable for discharge home. Diagnosis is asthma exacerbation. Scribe Attestation: Documented by Skip Sparrow, acting as a scribe for Alexandro Suarez MD Provider Scribe Attestation: All medical record entries made by the Scribe were at my direction and personally dictated by me. I have reviewed the chart and agree that the record accurately reflects my personal performance of the history, physical exam, medical decision making, and the department course for this patient. I have also personally directed, reviewed, and agree with the discharge instructions and disposition. Disposition - Clinical Impression Clinical Impression: Asthma exacerbation - Patient ED Disposition Is Patient to be Admitted: No - Disposition Disposition: Routine/Home Disposition Time: :53 Condition: IMPROVED Prescriptions: Albuterol 0.5% [Albuterol 0.5% Inhal Prisca (2.5 mg/0.5 ml) UD] 2.5 mg IH Q6 PRN #1 packet PRN Reason: Shortness Of Breath Mask, Face [Nebulizer Aerosol Mask Pediatric] 1 dev XX PRN PRN #1 dev PRN Reason: Shortness Of Breath Methylprednisolone [Medrol Dosepak] 4 mg PO ASDIR #1 pkg Nebulizer [Compact Compressor Nebulizer] 1 dev XX PRN PRN #1 dev PRN Reason: Shortness Of Breath Instructions: Asthma Action Plan Forms: [employer] ([place]) Print Language: SAMMARINESE
[2018-12-27 22:57] LABS: BASO % 0.4 % (0.0-2.0); EOS # 0.2 K/uL (0.0-0.7); EOS % 1.9 % (0.0-4.0); HEMOGLOBIN 11.5 g/dL (12.0-16.0); LYMPH # 1.8 K/uL (1.0-4.3); LYMPH % 15.8 % (20.0-40.0); MEAN CELL VOLUME 88.4 fl (81.0-99.0); MEAN CORPUSCULAR HEMOGLOBIN 28.6 pg (27.0-31.0); MEAN CORPUSCULAR HGB CONC 32.4 g/dL (33.0-37.0); NEUT # 8.1 K/uL (1.8-7.0); NEUT % 72.9 % (50.0-75.0); RBC 4.03 Mil/uL (3.80-5.20); RED CELL DISTRIBUTION WIDTH 14.9 % (11.5-14.5); WHITE BLOOD COUNT 11.1 K/uL (4.8-10.8)
[2018-12-27 23:02] LABS: INR 1.1; PROTHROMBIN TIME 12.4 Seconds (9.8-13.1)
[2018-12-27 23:04] LABS: PARTIAL THROMBOPLASTIN TIME 29.7 Seconds (25.6-37.1)
[2018-12-27 23:21] LABS: ALB/GLOB RATIO 1.5 (1.0-2.1); ALBUMIN 4.5 g/dL (3.5-5.0); ALT/SGPT 30 U/L (9-52); AST/SGOT 26 U/L (14-36); BLOOD UREA NITROGEN 22 mg/dl (7-17); GFR NON-AFRICAN AMERICAN > 60
[2018-12-27 23:34] LABS: B-TYPE NATRIURETIC PEPTIDE 715 pg/ml (0-900)
[2018-12-28 01:44] VITALS: TEMP 97.9
[2018-12-28 01:52] LABS: SQUAMOUS EPITHIAL < 1 /hpf (0-5); URINE BACTERIA RARE (<OCC); URINE BILIRUBIN NEGATIVE (NEGATIVE); URINE BLOOD NEGATIVE (NEGATIVE); URINE CLARITY CLEAR (Clear); URINE COLOR STRAW (YELLOW); URINE GLUCOSE (UA) 150 mg/dL (NEGATIVE); URINE HYALINE CAST 0-2 /hpf (0-2); URINE LEUKOCYTE ESTERASE NEG Leu/uL (Negative); URINE PROTEIN 100 mg/dL (NEGATIVE); URINE UROBILINOGEN 0.2-1.0 mg/dL (0.2-1.0)
[2018-12-28 02:17] VITALS: BP 126/72; PULSE 93; RESP 16
[2018-12-28 03:50] VITALS: O2SAT 98
--- NOTE | 2018-12-28 08:32 | RAD ---
Date of service: 12/27/2018 HISTORY: chest pain COMPARISON: Chest radiographs 10/31/2016. TECHNIQUE: 1 view obtained. FINDINGS: LUNGS: No acute pulmonary disease. Small calcified granuloma again seen the mid right lung zone. PLEURA: No significant pleural effusion identified, no pneumothorax apparent. CARDIOVASCULAR: Calcific atherosclerotic changes are seen related to the thoracic aorta. Normal cardiac size. No pulmonary vascular congestion. OSSEOUS STRUCTURES: No significant abnormalities. VISUALIZED UPPER ABDOMEN: Normal. OTHER FINDINGS: None. IMPRESSION: No interval acute cardiopulmonary disease appreciated.
--- NOTE | 2018-12-28 09:20 | CARD ---
APPROVED REPORT Date of service: 12/27/2018 EKG Measurement Heart [id number] IN [id number] <Conclusion> Sinus tachycardia Nonspecific ST and T wave abnormality Abnormal ECG
== END 2018-12-28 02:16 | disposition home or self-care (01) ==
LOC: H.ER 22:08
DX: J45.901 Unspecified asthma with (acute) exacerbation (principal); E11.9 Type 2 diabetes mellitus without complications; I10 Essential (primary) hypertension; J44.9 Chronic obstructive pulmonary disease, unspecified; Z79.84 Long term (current) use of oral hypoglycemic drugs; Z79.899 Other long term (current) drug therapy; Z88.6 Allergy status to analgesic agent; E78.00 Pure hypercholesterolemia, unspecified
CPT/HCPCS: 71045; 80053; 81003; 83880; 84484; 85025; 85610; 85730; 87804; 93005; 94640; 96365; 96375; 99284; J2930